=== PATIENT | female | born 1970 | race Caucasian/White ===

== ENCOUNTER 2016-09-30 20:46 | Emergency (ER) | payer BC, OTHER ==
[2016-09-30 21:39] VITALS: BP 122/67; PULSE 87; RESP 18; TEMP 97.4
--- NOTE | 2016-09-30 21:46 | ED ---
Wound/Laceration HPI - General Chief Complaint: Wound/Laceration Stated Complaint: left hand lac Time Seen by Provider: 09/30/16 21:24 Source: patient, RN notes reviewed, old records reviewed Mode of arrival: ambulatory Limitations: no limitations - History of Present Illness Initial Comments: Patient is a 46-year-old female chief complaint laceration left hand between her first and second finger. Patient reports that she was using scissors to cut something and he slipped and cut her hand. Patient states that the laceration is relatively deep. She states she is up-to-date on her tetanus vaccination. She denies any decreased range of motion or hand or wrist. She states the bleeding is well controlled.Patient denies any recent fever, chills, shortness of breath, chest pain, back pain, abdominal pain, nausea vomiting, numbness or tingling, dysuria or hematuria, constipation or diarrhea, headaches or visual changes, or any other current symptoms - Related Data Allergies Allergy/AdvReac Type Severity Reaction Status Date / Time No Known Allergies Allergy Verified 09/30/16 21:36 Review of Systems ROS Statement: Those systems with pertinent positive or pertinent negative responses have been documented in the HPI. ROS Other: All systems not noted in ROS Statement are negative. Past Medical History Past Medical History: No Reported History History of Any Multi-Drug Resistant Organisms: None Reported Past Surgical History: Appendectomy, Cholecystectomy Past Psychological History: No Psychological Hx Reported Smoking Status: Never smoker Past Alcohol Use History: None Reported Past Drug Use History: None Reported General Exam - General Exam Comments Initial Comments: Pleasant 46-year-old female, no distress. Limitations: no limitations General appearance: alert, in no apparent distress Head exam: Present: atraumatic, normocephalic, normal inspection Eye exam: Present: normal appearance, PERRL, EOMI. Absent: scleral icterus, conjunctival injection, periorbital swelling ENT exam: Present: normal exam, mucous membranes moist Neck exam: Present: normal inspection, full ROM. Absent: tenderness, meningismus, lymphadenopathy Respiratory exam: Present: normal lung sounds bilaterally. Absent: respiratory distress, wheezes, rales, rhonchi, stridor Cardiovascular Exam: Present: regular rate, normal rhythm, normal heart sounds. Absent: systolic murmur, diastolic murmur, rubs, gallop, clicks GI/Abdominal exam: Present: soft Extremities exam: Present: normal inspection, full ROM, normal capillary refill. Absent: tenderness, pedal edema, joint swelling, calf tenderness Left Upper Arm exam: Present: normal inspection, full ROM Elbow exam: Present: normal inspection, full ROM Forearm Wrist exam: Present: normal inspection, full ROM Hand Wrist exam: Present: normal inspection, full ROM, laceration, other (1cm laceration between 1st and 2nd finger. ). Absent: tenderness, swelling, abrasion Neuro motor exam: Present: wrist extension intact, thumb opposition intact, thumb IP flexion intact, thumb adduction intact, fingers 2-5 abduction intact Vascular: Present: normal capillary refill Back exam: Present: normal inspection Neurological exam: Present: alert, oriented X3, CN II-XII intact Psychiatric exam: Present: normal affect, normal mood Skin exam: Present: warm, dry, intact, normal color. Absent: rash Course Vital Signs 09/30/16 21:36 Temperature 97.4 F L Pulse Rate 87 Respiratory 18 Rate Blood Pressure 122/67 O2 Sat by Pulse 96 Oximetry Procedures - Laceration Laceration #1 Site: hand Size (cm): 1 Description: linear Depth: simple, single layer Anesthetic Used: benzocaine 0.25% Anesthesia Technique: local infiltration Amount (mls): 1 Pre-repair: wound explored Type of Sutures: nylon Size of Sutures: 6-0 Number of Sutures: 1 Technique: simple, interrupted Patient Tolerated Procedure: well, no complications Medical Decision Making - Medical Decision Making Is a 46-year-old [employer] chief complaint laceration left hand patient was given 1 suture. Wound was well proximal maintenance soaked in water. Patient states her tetanus is up-to-date. Discussed monitor for signs of infection including redness drainage or swelling. Patient states she is have the sutures removed. Patient agrees the treatment plan will comply. Disposition Clinical Impression: Laceration of left hand Disposition: HOME SELF-CARE Condition: Good Instructions: Care For Your Stitches (ED), Laceration (ED) Additional Instructions: Please return to the emergency room in 8-10 days to have sutures removed. Please leave wound covered for the first 24-48 hours and then leave open to air after that time. Please use clean soap and water to clean the suture area to prevent scabbing over the top of your sutures. Please watch for any signs of infection which may include but not limited to increased pain, swelling, redness , fever or chills. Please return to the emergency room if any signs of infection do occur. Please return to the emergency room for any other concerns or complications. Referrals: Johnny Hanson MD [Primary Care Provider] - 1-2 days Time of Disposition: 21:46
== END 2016-09-30 21:55 | disposition home or self-care (01) ==
LOC: EC 20:46
DX: S61.412A Laceration without foreign body of left hand, initial encounter (principal); W27.2XXA Contact with scissors, initial encounter
CPT/HCPCS: 12001; 99283

== ENCOUNTER → 2017-06-25 | Outpatient (CLI) | payer BC, OTHER ==
--- NOTE | 2017-06-25 11:21 | XR ---
EXAMINATION TYPE: XR chest 2V DATE OF EXAM: 06/25/2017 COMPARISON: 05/16/2013 TECHNIQUE: PA and lateral views submitted. HISTORY: Upper respiratory infection FINDINGS: The lungs are clear and there is no pneumothorax, pleural effusion, or focal pneumonia. Hypertrophi c change of the spine. IMPRESSION: 1. No acute process.
== END | disposition home or self-care (01) ==
LOC: RADXRMAIN 11:05
PROVIDERS: ATTEND Family Medicine
DX: J06.9 Acute upper respiratory infection, unspecified (principal)
CPT/HCPCS: 71046

== ENCOUNTER → 2017-08-19 | Outpatient (CLI) | payer BC, OTHER ==
--- NOTE | 2017-08-19 10:58 | US ---
EXAMINATION TYPE: US abdomen complete DATE OF EXAM: 08/19/2017 COMPARISON: CT 2015, US 2013 CLINICAL HISTORY: R00.2 Palpitations, R94.5 Abnormal results of. Elevated liver enzymes, occasional R UQ pain, history of cholecystectomy EXAM MEASUREMENTS: Liver Length: 19.6 cm , normal less than 15.5. Gallbladder Wall: surgically absent CBD: 0.9 cm Spleen: 14.5 cm , normal less than 12.5. Right Kidney: 12.2 x 4.6 x 5.8 cm Left Kidney: 11.6 x 5.1 x 5.0 cm Difficult and limited study due to patient body habitus Pancreas: visualized portions wnl, limited by overlying midline bowel gas Liver: enlarged, heterogeneous, increased attenuation, increased echogenicity Gallbladder: surgically absent Evidence for sonographic Dooley's sign: yes CBD: visualized portions wnl, limited by overlying bowel gas Spleen: enlarged Right Kidney: no hydro or masses seen Left Kidney: no hydro or masses seen Upper IVC: wnl Abd Aorta: visualized portions wnl, limited by overlying midline bowel gas IMPRESSION: 1. Splenomegaly. 2. Hepatomegaly with mild fatty infiltration. 3. No suspicious acute changes
--- NOTE | 2017-08-25 11:00 | HM ---
HOLTER MONITOR REPORT 24 HOUR DCG REPORT: Patient in her diary had episodes when she felt some irregularity in her heart rhythm, some chest discomfort and 1 episode of lightheadedness. Predominant rhythm appears to be sinus with a heart rate ranging from 63 to 117 beats per minute with average heart rate of 83 beats per minute. Rare isolated PVCs were noted. There was no evidence of any significant pauses noted. At that time, patient complained of having some irregularity, she was in a normal sinus rhythm at about 80 beats per minute. There was no evidence of any significant arrhythmia on this Holter recording. There was no correlation of any arrhythmia with patient's perception of irregular heart rhythm. When she complained of some heart pounding, she was in a sinus rhythm at 98 beats per minute. IMPRESSION: Unremarkable 24 hour DCG with predominant sinus rhythm. No evidence of any significant arrhythmia and specifically no correlation of any arrhythmia with the patient's perception of irregular heart rhythm. MMODL / IJN: [id number] /
== END | disposition home or self-care (01) ==
LOC: RADUSWWP 10:03
PROVIDERS: ATTEND Family Medicine
DX: K76.0 Fatty (change of) liver, not elsewhere classified (principal); R16.2 Hepatomegaly with splenomegaly, not elsewhere classified; R00.2 Palpitations
CPT/HCPCS: 76700; 93225; 93226

== ENCOUNTER 2017-08-25 11:54 | Observation (INO) | payer BC ==
[2017-08-25] MEDS ORDERED: ASPIRIN 81 MG PO STA (12:26)
[2017-08-25] MEDS ORDERED: NITROGLYCERIN SL TABS 0.4 MG TAB SUBLINGUAL STA ×3 (12:26)
--- NOTE | 2017-08-25 12:45 | ED ---
General Adult HPI - General Chief complaint: Chest Pain Stated complaint: CHEST PAIN Time Seen by Provider: 08/25/17 12:18 Source: patient, RN notes reviewed Mode of arrival: wheelchair Limitations: no limitations - History of Present Illness Initial comments: Patient is a pleasant 47-year-old female presenting to the emergency Department with chest discomfort. Symptoms have been occurring for several weeks. Symptoms have been daily the last several days. Patient has associated palpitations. Discomfort feels like tightness. Today there was some associated dyspnea and nausea which were both new however also both resolved. No diaphoresis. No history of similar symptoms prior to the past few weeks. Patient has been on a monitor as an outpatient recently. Discomfort at this time is rated 4or5/10. - Related Data Home Medications Medication Instructions Recorded Confirmed Montelukast Sodium [Singulair] 10 mg PO HS 08/25/17 08/25/17 metFORMIN HCL [Glucophage] 500 mg PO BID 08/25/17 08/25/17 Allergies Allergy/AdvReac Type Severity Reaction Status Date / Time No Known Allergies Allergy Verified 08/25/17 12:47 Review of Systems ROS Statement: Those systems with pertinent positive or pertinent negative responses have been documented in the HPI. ROS Other: All systems not noted in ROS Statement are negative. Constitutional: Denies: fever Eyes: Denies: eye pain ENT: Denies: ear pain Respiratory: Denies: cough Cardiovascular: Reports: chest pain, palpitations Endocrine: Denies: fatigue Gastrointestinal: Denies: abdominal pain Genitourinary: Denies: dysuria Skin: Denies: rash Neurological: Denies: weakness Past Medical History Past Medical History: Diabetes Mellitus History of Any Multi-Drug Resistant Organisms: None Reported Past Surgical History: Appendectomy, Cholecystectomy Past Psychological History: No Psychological Hx Reported Smoking Status: Never smoker Past Alcohol Use History: None Reported Past Drug Use History: None Reported General Exam Limitations: no limitations General appearance: alert, in no apparent distress Head exam: Present: atraumatic Eye exam: Present: normal appearance, PERRL ENT exam: Present: normal oropharynx Neck exam: Present: normal inspection Respiratory exam: Present: normal lung sounds bilaterally Cardiovascular Exam: Present: regular rate, normal rhythm Expanded Peripheral pulses: 2+: Radial (R), Radial (L), Posterior Tibialis (R), Posterior Tibialis (L) GI/Abdominal exam: Present: soft. Absent: tenderness Extremities exam: Present: normal inspection. Absent: pedal edema, calf tenderness Neurological exam: Present: alert Psychiatric exam: Present: normal affect, normal mood Skin exam: Present: normal color Course Vital Signs 08/25/17 08/25/17 08/25/17 11:57 12:51 14:06 Temperature 98.0 F Pulse Rate 88 93 87 Respiratory 20 16 18 Rate Blood Pressure 165/74 142/85 128/75 O2 Sat by Pulse 99 97 99 Oximetry EKG Findings - EKG Comments: EKG Findings:: Normal sinus rhythm 88. FL 132. QRS 82. QT 376. QTc 454. Normal axis. Normal QRS. No acute ST change. Medical Decision Making - Medical Decision Making Patient reevaluated and improved with nitroglycerin. Discomfort is currently less than 2/10. Patient updated on results and plan. Case was discussed in detail with Dr. Hanson, who will admit his patient with cardiac evaluation. - Lab Data Result diagrams: 08/25/17 12:44 08/25/17 12:44 Lab Results 08/25/17 08/25/17 08/25/17 Range/Units 12:44 12:44 12:44 WBC 8.6 (3.8-10.6) k/uL RBC 5.40 (3.80-5.40) m/uL Hgb 15.7 (11.4-16.0) gm/dL Hct 46.0 (34.0-46.0) % MCV 85.2 (80.0-100.0) fL MCH 29.1 (25.0-35.0) pg MCHC 34.2 (31.0-37.0) g/dL RDW 14.0 (11.5-15.5) % Plt Count 298 (150-450) k/uL Neutrophils % 65 % Lymphocytes % 26 % Monocytes % 5 % Eosinophils % 2 % Basophils % 1 % Neutrophils # 5.6 (1.3-7.7) k/uL Lymphocytes # 2.2 (1.0-4.8) k/uL Monocytes # 0.4 (0-1.0) k/uL Eosinophils # 0.2 (0-0.7) k/uL Basophils # 0.1 (0-0.2) k/uL PT (9.0-12.0) sec INR (<1.2) APTT (22.0-30.0) sec D-Dimer (<0.60) mg/L FEU Sodium 143 (137-145) mmol/L Potassium 4.5 (3.5-5.1) mmol/L Chloride 104 (98-107) mmol/L Carbon Dioxide 26 (22-30) mmol/L Anion Gap 13 mmol/L BUN 18 H (7-17) mg/dL Creatinine 0.75 (0.52-1.04) mg/dL Est GFR (CKD-EPI)AfAm >90 (>60 ml/min/1.73 sqM) Est GFR (CKD-EPI)NonAf >90 (>60 ml/min/1.73 sqM) Glucose 103 H (74-99) mg/dL Calcium 9.8 (8.4-10.2) mg/dL Magnesium 2.0 (1.6-2.3) mg/dL Total Bilirubin 1.1 (0.2-1.3) mg/dL AST 59 H (14-36) U/L ALT 63 H (9-52) U/L Alkaline Phosphatase 124 (38-126) U/L Total Creatine Kinase 121 (30-135) U/L CK-MB (CK-2) 0.8 (0.0-2.4) ng/mL CK-MB (CK-2) Rel Index 0.7 Troponin I <0.012 (0.000-0.034) ng/mL Total Protein 8.4 H (6.3-8.2) g/dL Albumin 4.6 (3.5-5.0) g/dL 08/25/17 Range/Units 12:44 WBC (3.8-10.6) k/uL RBC (3.80-5.40) m/uL Hgb (11.4-16.0) gm/dL Hct (34.0-46.0) % MCV (80.0-100.0) fL MCH (25.0-35.0) pg MCHC (31.0-37.0) g/dL RDW (11.5-15.5) % Plt Count (150-450) k/uL Neutrophils % % Lymphocytes % % Monocytes % % Eosinophils % % Basophils % % Neutrophils # (1.3-7.7) k/uL Lymphocytes # (1.0-4.8) k/uL Monocytes # (0-1.0) k/uL Eosinophils # (0-0.7) k/uL Basophils # (0-0.2) k/uL PT 10.0 (9.0-12.0) sec INR 1.0 (<1.2) APTT 23.6 (22.0-30.0) sec D-Dimer 0.50 (<0.60) mg/L FEU Sodium (137-145) mmol/L Potassium (3.5-5.1) mmol/L Chloride (98-107) mmol/L Carbon Dioxide (22-30) mmol/L Anion Gap mmol/L BUN (7-17) mg/dL Creatinine (0.52-1.04) mg/dL Est GFR (CKD-EPI)AfAm (>60 ml/min/1.73 sqM) Est GFR (CKD-EPI)NonAf (>60 ml/min/1.73 sqM) Glucose (74-99) mg/dL Calcium (8.4-10.2) mg/dL Magnesium (1.6-2.3) mg/dL Total Bilirubin (0.2-1.3) mg/dL AST (14-36) U/L ALT (9-52) U/L Alkaline Phosphatase (38-126) U/L Total Creatine Kinase (30-135) U/L CK-MB (CK-2) (0.0-2.4) ng/mL CK-MB (CK-2) Rel Index Troponin I (0.000-0.034) ng/mL Total Protein (6.3-8.2) g/dL Albumin (3.5-5.0) g/dL - Radiology Data Radiology results: image reviewed (Chest x-ray shows no acute process) Disposition Clinical Impression: Chest pain Disposition: ADMITTED IP TO THIS HOSP Referrals: Johnny Hanson MD [Primary Care Provider] - 1-2 days Decision Time: 14:51
[2017-08-25 12:57] LABS: Basophils # (A) 0.1 k/uL (0-0.2); Basophils % (A) 1 %; Eosinophils # (A) 0.2 k/uL (0-0.7); Eosinophils % (A) 2 %; HGB 15.7 gm/dL (11.4-16.0); Lymphocytes # (A) 2.2 k/uL (1.0-4.8); Lymphocytes % (A) 26 %; MCH 29.1 pg (25.0-35.0); MCHC 34.2 g/dL (31.0-37.0); MCV 85.2 fL (80.0-100.0); Mean Platelet Volume 7.1; Monocytes # (A) 0.4 k/uL (0-1.0); Monocytes % (A) 5 %; Neutrophils # (A) 5.6 k/uL (1.3-7.7); Neutrophils % (A) 65 %; Platelet Count 298 k/uL (150-450); WBC 8.6 k/uL (3.8-10.6)
[2017-08-25 13:05] LABS: ALT 63 U/L (9-52); AST 59 U/L (14-36); Albumin 4.6 g/dL (3.5-5.0); Alkaline Phosphatase 124 U/L (38-126); Anion Gap 13 mmol/L; Blood Urea Nitrogen 18 mg/dL (7-17); Calcium 9.8 mg/dL (8.4-10.2); Carbon Dioxide 26 mmol/L (22-30); Chloride 104 mmol/L (98-107); Glucose 103 mg/dL (74-99); Potassium 4.5 mmol/L (3.5-5.1); Sodium 143 mmol/L (137-145); Total Bilirubin 1.1 mg/dL (0.2-1.3); Total Protein 8.4 g/dL (6.3-8.2)
[2017-08-25 13:08] LABS: D-Dimer 0.5 mg/L FEU (<0.60)
--- NOTE | 2017-08-25 13:12 | XR ---
EXAMINATION TYPE: XR chest 2V DATE OF EXAM: 08/25/2017 COMPARISON: CXR from 06-25-2017. HISTORY: Chest pain. TECHNIQUE: Frontal and lateral views of the chest are obtained. FINDINGS: There is no focal air space opacity, pleural effusion, or pneumothorax seen. The cardiac silhouette size is within normal limits. The osseous structures are intact. Cholecystectomy clips are seen. IMPRESSION: No acute cardiopulmonary process. No significant change from prior.
[2017-08-25 13:17] LABS: Partial Thromboplastin Time 23.6 sec (22.0-30.0)
[2017-08-25 13:27] LABS: Creatine Kinase 121 U/L (30-135)
[2017-08-25 13:38] LABS: Creatine Kinase MB 0.8 ng/mL (0.0-2.4); Troponin I <0.012 ng/mL (0.000-0.034)
[2017-08-25] MEDS ORDERED: NITROGLYCERIN SL TABS 0.4 MG TAB SUBLINGUAL PRN (14:51)
[2017-08-25 17:28] LABS: Glucose,Whole Blood 97 mg/dL (75-99)
[2017-08-25] MEDS: NITROGLYCERIN OINT 1 INCH/GM PACKET TOPICAL SCH (18:50)
[2017-08-25 19:13] LABS: Creatine Kinase 114 U/L (30-135)
[2017-08-25 19:26] LABS: Creatine Kinase MB 0.5 ng/mL (0.0-2.4); Troponin I <0.012 ng/mL (0.000-0.034)
[2017-08-25 20:23] LABS: Glucose,Whole Blood 131 mg/dL (75-99)
[2017-08-25] MEDS ORDERED: MONTELUKAST 10 MG TAB PO SCH (21:00)
[2017-08-25] MEDS: metFORMIN 500 MG TAB PO SCH (21:18)
[2017-08-26 01:01] LABS: Creatine Kinase 110 U/L (30-135)
[2017-08-26 01:03] LABS: Cholesterol 158 mg/dL (<200); HDL Cholesterol 30 mg/dL (40-60); LDL Cholesterol,Calculated 88 mg/dL (0-99); Triglycerides 200 mg/dL (<150)
[2017-08-26 01:14] LABS: Creatine Kinase MB 0.5 ng/mL (0.0-2.4); Troponin I <0.012 ng/mL (0.000-0.034)
[2017-08-26] MEDS: NITROGLYCERIN OINT 1 INCH/GM PACKET TOPICAL SCH ×2 (05:42→10:25)
[2017-08-26 06:45] LABS: Glucose,Whole Blood 131 mg/dL (75-99)
[2017-08-26 07:57] VITALS: PULSE 86; RESP 16
[2017-08-26] MEDS ORDERED: ASPIRIN 325 MG TAB PO SCH (09:00)
[2017-08-26 09:53] LABS: T4, Free (Free Thyroxine) 1.25 ng/dL (0.78-2.19)
[2017-08-26] MEDS: metFORMIN 500 MG TAB PO SCH (10:27)
--- NOTE | 2017-08-26 10:57 | ECHOF ---
Referral Reason:chest pain MEASUREMENTS -------- HEIGHT: 162.6 cm WEIGHT: 117.9 kg BP: 125/58 RVIDd: 2.6 cm (< 3.3) IVSd: 0.8 cm (0.6 - 1.1) LVIDd: 4.6 cm (3.9 - 5.3) LVPWd: 1.2 cm (0.6 - 1.1) IVSs: 1.4 cm LVIDs: 2.9 cm LVPWs: 1.4 cm LAESV Index (A-L): 11.06 ml/m Ao Diam: 2.5 cm (2.0 - 3.7) AV Cusp: 1.5 cm (1.5 - 2.6) LA Diam: 3.0 cm (2.7 - 3.8) EPSS: 0.5 cm MV E Bernardo: 0.89 m/s MV DecT: 233 ms MV A Bernardo: 0.72 m/s MV E/A Ratio: 1.24 RAP: 5.00 mmHg RVSP: 29.05 mmHg MV EF SLOPE: 124.48 mm/s (70 - 150) MV EXCURSION: 1.19 cm (> 18.000) FINDINGS -------- Sinus rhythm. This was a technically adequate study. The left ventricular size is normal. Left ventricular wall thickness is normal. Overall left vent ricular systolic function is normal with, an EF between 55 - 60 %. The right ventricle is normal in size and function. Normal LA size by volume 22+/-6 ml/m2. The right atrium is normal in size. The aortic valve is trileaflet, and appears structurally normal. No aortic stenosis or regurgitation. The mitral valve is normal. There is trace mitral regurgitation. Trace tricuspid regurgitation present. Right ventricular systolic pressure is normal at < 35 mmHg. There is no evidence of pulmonary hypertension. There is no pulmonic regurgitation present. The aortic root size is normal. Normal inferior vena cava with normal inspiratory collapse consistent with estimated right atrial pre ssure of 5 mmHg. The pericardium is normal. There is no pericardial effusion. CONCLUSIONS -------- 1. Sinus rhythm. 2. This was a technically adequate study. 3. The left ventricular size is normal. 4. Left ventricular wall thickness is normal. 5. Overall left ventricular systolic function is normal with, an EF between 55 - 60 %. 6. Normal LA size by volume 22+/-6 ml/m2. 7. The aortic valve is trileaflet, and appears structurally normal. No aortic stenosis or regurgitati on. 8. There is trace mitral regurgitation. 9. Trace tricuspid regurgitation present. 10. Right ventricular systolic pressure is normal at < 35 mmHg. 11. There is no evidence of pulmonary hypertension. 12. There is no pulmonic regurgitation present. 13. The aortic root size is normal. 14. There is no pericardial effusion. BATTERY CONTAINER TESTER: Fito Bhakta RDCS
--- NOTE | 2017-08-26 11:34 | CONS ---
CONSULTATION This is a 47-year-old, somewhat obese lady with a diagnosis of diabetes that was made recently and started on metformin. She also has underlying bronchial asthma, which has been stable. She has been experiencing episodes of palpitations on and off in a random fashion and had a recent 24 hour DCG performed last week. The Holter revealed that she was predominantly in sinus rhythm with rare isolated ectopy and there was no correlation of any arrhythmia when she felt her heart racing. However, she came in with complaints of discomfort in the chest, sharp in nature, along with some palpitations, some shortness of breath. All these symptoms happened, seemed to occur in a very random fashion. She never has any exertional chest pain. Only when she sits down, she feels some tightness in the chest that lasts a few seconds and then disappears. Quality is very atypical. Her chest tightness seems to be associated with palpitations. She is resting comfortably without symptoms at this time. PAST MEDICAL HISTORY: 1. Recently, she was diagnosed to have type 2 diabetes, started on Glucophage. 2. Bronchial asthma. 3. Obesity. 4. Patient is status post appendectomy, cholecystectomy. MEDICATIONS: Medications include metformin 500 mg b.i.d., Singulair 10 mg daily. ALLERGIES: None. REVIEW OF SYSTEMS: Unremarkable other than above-mentioned facts, specifically she does not have any hematemesis, melena, genitourinary symptoms, fever with chills or cough with expectoration. SOCIAL HISTORY: Patient does not smoke. Does not consume alcohol. PHYSICAL EXAMINATION: On examination, blood pressure is 118/70, pulse rate 70 per minute regular. HEENT: Unremarkable. Fundus was not examined by me. Neck is supple. There is no JVD. I do not hear a carotid bruit. There is no thyromegaly. Heart exam reveals S1, S2 heard normally without a rub, murmur or gallop. Lungs are clear. Abdomen is soft, nontender. Lower extremities reveal normal pulses. No edema. Central nervous system is normal. EKG revealed sinus mechanism without acute changes. LABORATORY DATA: Laboratory data suggests that her troponin levels are normal. Her D-dimer is also within normal limits. IMPRESSION: 1. Palpitations. A 24-hour Holter was unremarkable for any correlation of arrhythmia with her perception of palpitations. During her monitoring here and on the Holter, there was no significant arrhythmia other than isolated PACs and PVCs. 2. Atypical chest pain. 3. Obesity. 4. Recent diagnosis of type 2 diabetes mellitus. RECOMMENDATIONS: In view of her palpitations, I will check her thyroid levels. We will increase activity. We will check her LV function by echo. We will increase activity and if she has no further symptoms, she can be discharged and I will follow up in the office as an outpatient and consider outpatient stress testing. I discussed my thoughts in detail with the patient. Thank you very much for the consult. MMIGNACIOL / IJN: [id number] /
--- NOTE | 2017-08-26 11:46 | P.HPIM ---
History of Present Illness H&P Date: 08/26/17 Chief Complaint: Chest pain 47-year-old who presented to the emergency room with a chief complaint of chest pain. Patient states she has been having chest pain that she describes as tightness for multiple weeks. She states the pain also went into her upper back. Patient has also been experiencing palpitations. Patient states she recently had a Holter monitor and was told it was normal. Reports some dizziness, which has resolved. Denies shortness of breath. Denies nausea or vomiting. The patient has a history of diabetes mellitus and gastroesophageal reflux disease. She is a nonsmoker. Chest x-ray: Unremarkable EKG: Sinus mechanism. Rate 88. No ST elevation. Laboratory data: WBC 8.6. Hemoglobin 15.7. Platelet count 298. Sodium 143. Potassium 4.5. BUN 18. Creatinine 0.75. Glucose 103. Magnesium 2.0. Troponins negative 3. Lipid panel: Triglycerides 200, cholesterol 158, LDL 88, HDL 30 D-dimer: 0.50 The patient was admitted to the hospital under the care of Dr. Hanson to the observation unit. Review of Systems GENERAL: Patient denies fever. Denies chills. Positive for dizziness which has resolved. EYES: Denies blurred vision. Denies vision changes. Denies eye pain. EARS, NOSE, MOUTH, & THROAT: Denies headache. Denies sore throat. Denies ear pain. RESPIRATORY: Denies cough. Denies shortness of breath. Denies sputum production. Denies hemoptysis. CARDIOVASCULAR: Positive for chest pain yesterday. Currently denies chest pain. Positive for palpitations yesterday. Currently denies palpitations. Denies arrhythmias. GASTROINTESTINAL: Denies abdominal pain. Denies diarrhea. Denies constipation. Denies nausea. Denies vomiting. Denies heartburn. Denies blood in the stool. GENITOURINARY: Denies urinary frequency. Denies burning. Denies dysuria. Denies cloudy urine. Denies blood in the urine. MUSCULOSKELETAL: Denies myalgias. Denies joint swelling. Denies decreased range of motion beyond patients baseline. INTEGUMENTARY: Denies pruitis. Denies rash. PSYCHIATRIC: Denies suicidal or homicial ideations. ENDOCRINE: Denies weight change. Denies polydipsia. Denies polyuria. HEMATOLOGIC: Denies bleeding disorders. Past Medical History Past Medical History: Cancer, Diabetes Mellitus, GERD/Reflux, Pneumonia Additional Past Medical History / Comment(s): arthritis, scoliosis,recently dx w /dm-2, murmur,bronchitis. "enlarged liver,elevated liver enz-has u/s of liver no results back yet", basal cell skin ca eye lid History of Any Multi-Drug Resistant Organisms: None Reported Past Surgical History: Ablation, Appendectomy, Cholecystectomy, Tubal Ligation Additional Past Surgical History / Comment(s): basal cell skin ca removed lt eye lid Past Anesthesia/Blood Transfusion Reactions: No Reported Reaction Smoking Status: Never smoker - Past Family History Mother Family Medical History: Cancer Additional Family Medical History / Comment(s): lung cancer - age 47 Father Additional Family Medical History / Comment(s): age 70 from [facility] Medications and Allergies Home Medications Medication Instructions Recorded Confirmed Type Montelukast Sodium [Singulair] 10 mg PO HS 08/25/17 08/25/17 History metFORMIN HCL [Glucophage] 500 mg PO BID 08/25/17 08/25/17 History Allergies Allergy/AdvReac Type Severity Reaction Status Date / Time No Known Allergies Allergy Verified 08/25/17 12:47 Physical Exam Vitals: Vital Signs Temp Pulse Pulse Resp BP BP Pulse Ox 08/26/17 08:00 16 08/26/17 07:54 98.1 F 86 16 125/58 97 08/26/17 04:00 98.2 F 74 18 117/66 97 08/25/17 23:29 98.6 F 85 16 104/55 93 L 08/25/17 20:00 81 16 08/25/17 19:36 98.1 F 81 16 156/87 94 L 08/25/17 16:10 98.9 F 82 16 145/78 96 08/25/17 15:41 98.2 F 79 18 135/69 98 08/25/17 14:06 87 18 128/75 99 08/25/17 12:51 93 16 142/85 97 08/25/17 11:57 98.0 F 88 20 165/74 99 Intake and Output 08/25/17 08/26/17 08/26/17 22:59 06:59 14:59 Intake Total 400 Balance 400 Intake: Oral 400 Other: Voiding Method Toilet Toilet GENERAL: This is a 47-year-old female in no apparent distress at the time of examination. Pleasant and cooperative. HEENT: Head is atraumatic, normocephalic. Pupils are equal, round, and reactive to light. Sclerae anicteric. Conjunctivae are clear. Mucus membranes of the mouth are moist. Neck is supple. RESPIRATORY: Clear to ausculation. No wheezes, rales, or rhonchi. No use of accessory muscles. Patient maintaining oxygen saturation greater than 92%. No chest wall tenderness is noted on palpation or with deep breathing. CARDIOVASCULAR: Regular rate and rhythm. S1 and S2 noted. No systolic or diastolic murmur auscultated. No JVD noted. No S3 or S4 noted. GASTROINTESTINAL: No distention noted. Abdomen soft and round. Normal active bowel sounds auscultated x 4 quadrants. No pain or tenderness noted upon palpation. INTEGUMENTARY: No cyanosis. No jaundice. No rashes noted. No cellulitis noted. EXTREMITIES: 2+ peripheral pulses. No evidence of peripheral edema. No calf tenderness noted. NEUROLOGIC: Cranial nerves II-XII intact. PSYCHIATRIC: Awake, alert, and oriented X 3. Appropriate affect. Intact judgement and insight. Results CBC & Chem 7: 08/25/17 12:44 08/25/17 12:44 Labs: Abnormal Lab Results - Last 24 Hours (Table) 08/25/17 08/25/17 08/26/17 Range/Units 12:44 19:56 00:10 BUN 18 H (7-17) mg/dL Glucose 103 H (74-99) mg/dL POC Glucose (mg/dL) 131 H (75-99) mg/dL AST 59 H (14-36) U/L ALT 63 H (9-52) U/L Total Protein 8.4 H (6.3-8.2) g/dL Triglycerides 200 H (<150) mg/dL HDL Cholesterol 30 L (40-60) mg/dL TSH (0.465-4.680) mIU/L 08/26/17 08/26/17 Range/Units 00:10 06:43 BUN (7-17) mg/dL Glucose (74-99) mg/dL POC Glucose (mg/dL) 131 H (75-99) mg/dL AST (14-36) U/L ALT (9-52) U/L Total Protein (6.3-8.2) g/dL Triglycerides (<150) mg/dL HDL Cholesterol (40-60) mg/dL TSH 4.800 H (0.465-4.680) mIU/L Thrombosis Risk Factor Assmnt - Choose All That Apply Any of the Below Risk Factors Present?: Yes Each Factor Represents 1 point: Age 41-60 years, Obesity (BMI >25) Other Risk Factors: No Each Risk Factor Represents 5 Points: Elective major lower extremity arthoplasty Thrombosis Risk Factor Assessment Total Risk Factor Score: 7 Thrombosis Risk Factor Assessment Level: High Risk Assessment and Plan Plan: ASSESSMENT: Symptoms of chest tightness and palpitations, rule out acute coronary syndrome and/or arrhythmias Diabetes mellitus, type II Morbid obesity: BMI 44.6 PLAN: Cardiology on consult. Await further recommendations and input Home meds as appropriate Monitor labs Monitor vital signs and address as appropriate Discharge planning: Patient to return home when stable Further recommendations pending patient's course Nurse practitioner note has been reviewed by physician. Signing provider agrees with the documented findings, assessment, and plan of care.
[2017-08-26 11:50] VITALS: BP 124/73; TEMP 98.2
--- NOTE | 2017-08-26 11:53 | P.DS ---
Providers Date of admission: 08/25/17 14:51 Expected date of discharge: 08/26/17 Attending physician: Johnny Hanson Consults: 08/25/17 14:51 Consult Physician Urgent Consulting Provider: Vincent Evans Consult Reason/Comments: cp Do you want consulting provider notified?: Yes Primary care physician: Johnny Margie Va Hospital Course: 47-year-old who presented to the emergency room with a chief complaint of chest pain. Patient states she has been having chest pain that she describes as tightness for multiple weeks. She states the pain also went into her upper back. Patient has also been experiencing palpitations. Patient states she recently had a Holter monitor and was told it was normal. Reports some dizziness, which has resolved. Denies shortness of breath. Denies nausea or vomiting. The patient has a history of diabetes mellitus and gastroesophageal reflux disease. She is a nonsmoker. Chest x-ray: Unremarkable EKG: Sinus mechanism. Rate 88. No ST elevation. Laboratory data: WBC 8.6. Hemoglobin 15.7. Platelet count 298. Sodium 143. Potassium 4.5. BUN 18. Creatinine 0.75. Glucose 103. Magnesium 2.0. Troponins negative 3. Lipid panel: Triglycerides 200, cholesterol 158, LDL 88, HDL 30 D-dimer: 0.50 The patient was admitted to the hospital under the care of Dr. Hanson to the observation unit. The patient was evaluated by cardiology. She underwent an echocardiogram revealing ejection fraction between 55% and 60%, trace mitral regurgitation, trace tricuspid regurgitation. The patient was cleared for discharge from a cardiology standpoint and is to follow up in the office next week and may undergo stress test. The patient was deemed stable for discharge per Dr. Hanson. She is to follow up on an outpatient basis. DISCHARGE DIAGNOSIS: Symptoms of chest tightness and palpitations, acute coronary syndrome ruled out , patient with recent holter monitor that was unremarkable and did not show evidence of arrhythmias Diabetes mellitus, type II Morbid obesity: BMI 44.6 Nurse practitioner note has been reviewed by physician. Signing provider agrees with the documented findings, assessment, and plan of care. Plan - Discharge Summary Discharge Rx Participant: No New Discharge Prescriptions: Continue metFORMIN HCL [Glucophage] 500 mg PO BID Montelukast Sodium [Singulair] 10 mg PO HS Discharge Medication List Montelukast Sodium [Singulair] 10 mg PO HS 08/25/17 [History] metFORMIN HCL [Glucophage] 500 mg PO BID 08/25/17 [History] Follow up Appointment(s)/Referral(s): Sheri Doss MD [STAFF PHYSICIAN] - 3 Days Johnny Hanson MD [Primary Care Provider] - 1 Week Patient Instructions/Handouts: Chest Pain (DC) Discharge Disposition: HOME SELF-CARE
[2017-08-26 12:11] LABS: Glucose,Whole Blood 111 mg/dL (75-99)
== END 2017-08-26 11:20 | disposition home or self-care (01) ==
LOC: EC 11:54 → 3OBS 14:51
PROVIDERS: ADMIT Family Medicine; ATTEND Family Medicine
DX: R07.89 Other chest pain (principal); R06.00 Dyspnea, unspecified; R42 Dizziness and giddiness; R11.0 Nausea; J45.909 Unspecified asthma, uncomplicated; E66.01 Morbid (severe) obesity due to excess calories; Z68.41 Body mass index [BMI] 40.0-44.9, adult; K21.9 Gastro-esophageal reflux disease without esophagitis; M19.90 Unspecified osteoarthritis, unspecified site; R94.5 Abnormal results of liver function studies; E11.9 Type 2 diabetes mellitus without complications; Z90.49 Acquired absence of other specified parts of digestive tract; Z79.84 Long term (current) use of oral hypoglycemic drugs; Z79.899 Other long term (current) drug therapy; Z87.01 Personal history of pneumonia (recurrent); Z87.09 Personal history of other diseases of the respiratory system; Z85.828 Personal history of other malignant neoplasm of skin; Z80.1 Family history of malignant neoplasm of trachea, bronchus and lung
CPT/HCPCS: 99285 ×2; 36415; 93005; 93306; 85379; 84439; 80061; 80053; 82550 ×2; 82553 ×2; 83735; 84443; 84484 ×2; 85025; 85610; 85730; 71046; G0378 ×2

== ENCOUNTER → 2018-04-11 | Outpatient (CLI) | payer BC ==
--- NOTE | 2018-04-11 18:16 | XR ---
EXAMINATION TYPE: XR Hip Complete RT DATE OF EXAM: 04/11/2018 COMPARISON: NONE HISTORY: Right hip pain TECHNIQUE: 2 views FINDINGS: Hip joint space is normal. There is some spurring at the greater trochanter. There could be small chip fracture of the spur. There is no dislocation. Sacroiliac joint appears normal. There is no sign of hip dysplasia. IMPRESSION: Possible fracture of the hypertrophic spur on the greater trochanter of the right femur.
== END | disposition home or self-care (01) ==
LOC: RADXRMAIN 16:21
PROVIDERS: ATTEND Nurse Practitioner Women's Health
DX: M25.551 Pain in right hip (principal)
CPT/HCPCS: 73502

== ENCOUNTER 2018-05-23 14:19 | Emergency (ER) | payer BC ==
[2018-05-23] MEDS ORDERED: MECLIZINE 12.5 MG TAB PO STA (14:50)
[2018-05-23] MEDS ORDERED: SODIUM CHLORIDE 0.9% 1,000 ML IV STA (14:50)
--- NOTE | 2018-05-23 15:06 | ED ---
General Adult HPI - General Chief complaint: Dizziness Stated complaint: Vertigo, weakness Time Seen by Provider: 05/23/18 14:35 Source: patient, RN notes reviewed, old records reviewed Mode of arrival: ambulatory Limitations: no limitations - History of Present Illness Initial comments: 47-year-old female presenting with 1 week of vertigo and dizziness. Patient states she had physical therapy for chronic hip pain, denies any therapy session she became dizzy, had several episodes of vomiting. This was one week ago. Since that time she's had ongoing nausea and has felt unsteady on her feet. No significant vomiting. No fever or chills. No chest pain. No headache. She was sent by urgent care for evaluation of vertigo. Denies focal numbness or weakness. - Related Data Home Medications Medication Instructions Recorded Confirmed metFORMIN HCL [Glucophage] 500 mg PO HS 08/25/17 05/23/18 Loratadine [Claritin] 10 mg PO DAILY 05/23/18 05/23/18 Previous Rx's Medication Instructions Recorded Meclizine [Antivert] 25 mg PO TID PRN #21 tab 05/23/18 Allergies Allergy/AdvReac Type Severity Reaction Status Date / Time No Known Allergies Allergy Verified 05/23/18 14:48 Review of Systems ROS Statement: Those systems with pertinent positive or pertinent negative responses have been documented in the HPI. ROS Other: All systems not noted in ROS Statement are negative. Past Medical History Past Medical History: Cancer, Diabetes Mellitus, GERD/Reflux, Pneumonia Additional Past Medical History / Comment(s): arthritis, scoliosis,recently dx w /dm-2, murmur,bronchitis. "enlarged liver,elevated liver enz-has u/s of liver no results back yet", basal cell skin ca eye lid History of Any Multi-Drug Resistant Organisms: None Reported Past Surgical History: Ablation, Appendectomy, Cholecystectomy, Tubal Ligation Additional Past Surgical History / Comment(s): basal cell skin ca removed lt eye lid Past Anesthesia/Blood Transfusion Reactions: No Reported Reaction Past Psychological History: No Psychological Hx Reported Smoking Status: Never smoker - Past Family History Mother Family Medical History: Cancer Additional Family Medical History / Comment(s): lung cancer - age 47 Father Additional Family Medical History / Comment(s): age 70 from [facility] General Exam Limitations: no limitations General appearance: alert, in no apparent distress Head exam: Present: atraumatic, normocephalic Eye exam: Present: normal appearance, PERRL, EOMI. Absent: nystagmus ENT exam: Present: mucous membranes dry Neck exam: Present: normal inspection. Absent: tenderness, meningismus Respiratory exam: Present: normal lung sounds bilaterally. Absent: respiratory distress, wheezes Cardiovascular Exam: Present: regular rate, normal rhythm GI/Abdominal exam: Present: soft. Absent: distended, tenderness, guarding Extremities exam: Present: normal inspection, normal capillary refill. Absent: pedal edema Neurological exam: Present: alert, oriented X3, CN II-XII intact, other (No ataxia, finger-nose within normal limits). Absent: motor sensory deficit Psychiatric exam: Present: normal affect, normal mood Skin exam: Present: warm, dry, intact. Absent: cyanosis, diaphoretic Course Vital Signs 05/23/18 05/23/18 05/23/18 14:25 15:30 16:00 Temperature 97.4 F L Pulse Rate 82 85 82 Respiratory 16 19 18 Rate Blood Pressure 159/96 146/95 154/97 O2 Sat by Pulse 97 97 Oximetry 05/23/18 16:30 Temperature Pulse Rate 84 Respiratory 16 Rate Blood Pressure 150/91 O2 Sat by Pulse 98 Oximetry EKG Findings - EKG Comments: EKG Findings:: EKG: Sinus rhythm with PACs and LVH may be normal variant, ventricular rate of 83, WV interval 132, QRS duration 84, QTC 453 Medical Decision Making - Medical Decision Making 47-year-old female presenting with 1 week of vertigo. Patient's is overall well -appearing, no ataxia, nonfocal neurologic exam. Patient has normal CBC, normal CMP, urinalysis is contaminated. EKG sinus rhythm, chest x-ray negative for focal findings, head CT is within normal limits, no acute ischemia or hemorrhage. Patient given meclizine and IV fluids, reevaluation she is feeling better, she does still have some residual dizziness. She is offered observation for continue symptomatic treatment, she declined she prefers to be discharged. She will have close follow-up with her primary care physician. She will return with any worsening or changing symptoms, including headache, focal numbness or weakness, changes in her vision or speech. - Lab Data Result diagrams: 05/23/18 15:03 05/23/18 15:03 Lab Results 05/23/18 05/23/18 05/23/18 Range/Units 15:03 15:03 15:03 WBC 9.4 (3.8-10.6) k/uL RBC 5.29 (3.80-5.40) m/uL Hgb 15.3 (11.4-16.0) gm/dL Hct 45.7 (34.0-46.0) % MCV 86.4 (80.0-100.0) fL MCH 28.9 (25.0-35.0) pg MCHC 33.4 (31.0-37.0) g/dL RDW 13.6 (11.5-15.5) % Plt Count 267 (150-450) k/uL Neutrophils % 66 % Lymphocytes % 26 % Monocytes % 4 % Eosinophils % 2 % Basophils % 1 % Neutrophils # 6.2 (1.3-7.7) k/uL Lymphocytes # 2.4 (1.0-4.8) k/uL Monocytes # 0.4 (0-1.0) k/uL Eosinophils # 0.2 (0-0.7) k/uL Basophils # 0.1 (0-0.2) k/uL PT 10.7 (9.0-12.0) sec INR 1.0 (<1.2) Sodium 139 (137-145) mmol/L Potassium 4.1 (3.5-5.1) mmol/L Chloride 103 (98-107) mmol/L Carbon Dioxide 26 (22-30) mmol/L Anion Gap 10 mmol/L BUN 15 (7-17) mg/dL Creatinine 0.77 (0.52-1.04) mg/dL Est GFR (CKD-EPI)AfAm >90 (>60 ml/min/1.73 sqM) Est GFR (CKD-EPI)NonAf >90 (>60 ml/min/1.73 sqM) Glucose 103 H (74-99) mg/dL Calcium 9.6 (8.4-10.2) mg/dL Total Bilirubin 1.1 (0.2-1.3) mg/dL AST 59 H (14-36) U/L ALT 51 (9-52) U/L Alkaline Phosphatase 95 (38-126) U/L Troponin I (0.000-0.034) ng/mL Total Protein 8.2 (6.3-8.2) g/dL Albumin 4.4 (3.5-5.0) g/dL Urine Color Urine Appearance (Clear) Urine pH (5.0-8.0) Ur Specific Patt[place] (1.001-1.035) Urine Protein (Negative) Urine Glucose (UA) (Negative) Urine Ketones (Negative) Urine Blood (Negative) Urine Nitrite (Negative) Urine Bilirubin (Negative) Urine Urobilinogen (<2.0) mg/dL Ur Leukocyte Esterase (Negative) Urine RBC (0-5) /hpf Urine WBC (0-5) /hpf Ur Squamous Epith Cells (0-4) /hpf Urine Bacteria (None) /hpf Urine Mucus (None) /hpf 05/23/18 05/23/18 Range/Units 15:03 15:03 WBC (3.8-10.6) k/uL RBC (3.80-5.40) m/uL Hgb (11.4-16.0) gm/dL Hct (34.0-46.0) % MCV (80.0-100.0) fL MCH (25.0-35.0) pg MCHC (31.0-37.0) g/dL RDW (11.5-15.5) % Plt Count (150-450) k/uL Neutrophils % % Lymphocytes % % Monocytes % % Eosinophils % % Basophils % % Neutrophils # (1.3-7.7) k/uL Lymphocytes # (1.0-4.8) k/uL Monocytes # (0-1.0) k/uL Eosinophils # (0-0.7) k/uL Basophils # (0-0.2) k/uL PT (9.0-12.0) sec INR (<1.2) Sodium (137-145) mmol/L Potassium (3.5-5.1) mmol/L Chloride (98-107) mmol/L Carbon Dioxide (22-30) mmol/L Anion Gap mmol/L BUN (7-17) mg/dL Creatinine (0.52-1.04) mg/dL Est GFR (CKD-EPI)AfAm (>60 ml/min/1.73 sqM) Est GFR (CKD-EPI)NonAf (>60 ml/min/1.73 sqM) Glucose (74-99) mg/dL Calcium (8.4-10.2) mg/dL Total Bilirubin (0.2-1.3) mg/dL AST (14-36) U/L ALT (9-52) U/L Alkaline Phosphatase (38-126) U/L Troponin I <0.012 (0.000-0.034) ng/mL Total Protein (6.3-8.2) g/dL Albumin (3.5-5.0) g/dL Urine Color Yellow Urine Appearance Cloudy H (Clear) Urine pH 5.0 (5.0-8.0) Ur Specific [place] 1.024 (1.001-1.035) Urine Protein Trace H (Negative) Urine Glucose (UA) Negative (Negative) Urine Ketones Negative (Negative) Urine Blood Negative (Negative) Urine Nitrite Negative (Negative) Urine Bilirubin Negative (Negative) Urine Urobilinogen <2.0 (<2.0) mg/dL Ur Leukocyte Esterase Moderate H (Negative) Urine RBC 2 (0-5) /hpf Urine WBC 9 H (0-5) /hpf Ur Squamous Epith Cells 15 H (0-4) /hpf Urine Bacteria Many H (None) /hpf Urine Mucus Moderate H (None) /hpf Disposition Clinical Impression: Vertigo Disposition: HOME SELF-CARE Condition: Good Instructions: Dizziness (ED) Prescriptions: Meclizine [Antivert] 25 mg PO TID PRN #21 tab PRN Reason: Vertigo Is patient prescribed a controlled substance at d/c from ED?: No Referrals: Johnny Hanson MD [Primary Care Provider] - 1-2 days Time of Disposition: 16:53
[2018-05-23 15:16] LABS: Basophils # (A) 0.1 k/uL (0-0.2); Basophils % (A) 1 %; Eosinophils # (A) 0.2 k/uL (0-0.7); Eosinophils % (A) 2 %; HCT 45.7 % (34.0-46.0); HGB 15.3 gm/dL (11.4-16.0); Lymphocytes # (A) 2.4 k/uL (1.0-4.8); Lymphocytes % (A) 26 %; MCH 28.9 pg (25.0-35.0); MCHC 33.4 g/dL (31.0-37.0); MCV 86.4 fL (80.0-100.0); Mean Platelet Volume 6.7; Monocytes # (A) 0.4 k/uL (0-1.0); Monocytes % (A) 4 %; Neutrophils # (A) 6.2 k/uL (1.3-7.7); Neutrophils % (A) 66 %; Platelet Count 267 k/uL (150-450); RBC 5.29 m/uL (3.80-5.40); RDW 13.6 % (11.5-15.5); WBC 9.4 k/uL (3.8-10.6)
[2018-05-23 15:21] LABS: Prothrombin Time 10.7 sec (9.0-12.0)
[2018-05-23 15:27] LABS: ALT 51 U/L (9-52); AST 59 U/L (14-36); Albumin 4.4 g/dL (3.5-5.0); Alkaline Phosphatase 95 U/L (38-126); Anion Gap 10 mmol/L; Blood Urea Nitrogen 15 mg/dL (7-17); Calcium 9.6 mg/dL (8.4-10.2); Carbon Dioxide 26 mmol/L (22-30); Chloride 103 mmol/L (98-107); Glucose 103 mg/dL (74-99); Potassium 4.1 mmol/L (3.5-5.1); Sodium 139 mmol/L (137-145); Total Bilirubin 1.1 mg/dL (0.2-1.3); Total Protein 8.2 g/dL (6.3-8.2)
--- NOTE | 2018-05-23 15:31 | CT ---
EXAMINATION TYPE: CT brain wo con DATE OF EXAM: 05/23/2018 COMPARISON: None HISTORY: Dizziness x [address] DLP: 1109.4 mGycm. Automated Exposure Control for Dose Reduction was Utilized. TECHNIQUE: CT scan of the head is performed without contrast. FINDINGS: There is no acute intracranial hemorrhage, mass effect, or midline shift identified. The ventricles and sulci are within normal limits in size. The globes are intact and the visualized sin uses are clear. No suspicious opacification mastoid air cells is present bilaterally. IMPRESSION: No acute intracranial hemorrhage or midline shift is seen.
--- NOTE | 2018-05-23 15:34 | XR ---
EXAMINATION TYPE: XR chest 2V DATE OF EXAM: 05/23/2018 COMPARISON: Prior chest x-ray August 25, 2017 HISTORY: Syncope and weakness. TECHNIQUE: Frontal and lateral views of the chest are obtained. FINDINGS: There is no focal air space opacity, pleural effusion, or pneumothorax seen. The cardiac silhouette size is upper limits of normal. The osseous structures are intact. Cholecystectomy clips are redemonstrated. IMPRESSION: No acute cardiopulmonary process. No significant change from prior.
[2018-05-23 15:41] LABS: Appearance,Urine Cloudy (Clear); Bacteria,Urine Many /hpf; Bilirubin,Urine Negative (Negative); Blood,Urine Negative (Negative); Color,Urine Yellow; Glucose,Urine (UA) Negative (Negative); Ketones,Urine Negative (Negative); Leukocyte Esterase,Urine Moderate (Negative); Mucus,Urine Moderate /hpf; Nitrite,Urine Negative (Negative); Protein,Urine Trace (Negative); RBC,Urine 2 /hpf (0-5); Specific Gravity,Urine 1.024 (1.001-1.035); Squamous Epithelial Cell,Urine 15 /hpf (0-4); Urobilinogen,Urine <2.0 mg/dL (<2.0); WBC,Urine 9 /hpf (0-5)
[2018-05-23 17:05] VITALS: BP 142/92; PULSE 62; RESP 18; TEMP 98
== END 2018-05-23 17:04 | disposition home or self-care (01) ==
LOC: EC 14:19
DX: R42 Dizziness and giddiness (principal); R11.2 Nausea with vomiting, unspecified; E11.9 Type 2 diabetes mellitus without complications; Z79.84 Long term (current) use of oral hypoglycemic drugs; Z79.899 Other long term (current) drug therapy; Z85.828 Personal history of other malignant neoplasm of skin; Z98.890 Other specified postprocedural states; Z87.39 Personal history of other diseases of the musculoskeletal system and connective tissue
CPT/HCPCS: 36415; 70450; 71046; 80053; 81001; 84484; 85025; 85610; 93005; 96360; 99285

== ENCOUNTER → 2019-01-16 | Outpatient (CLI) | payer BC ==
--- NOTE | 2019-01-17 10:03 | MM ---
Reason for exam: screening (asymptomatic). Last mammogram was performed 3 years and 6 months ago. History: Patient is postmenopausal and has history of other cancer at age 43. Benign US breast aspiration single LT of the left breast, June 27, 2014. Benign US biopsy breast VAD RT of the right breast, June 27, 2014. Physical Findings: A clinical breast exam by your physician is recommended on an annual basis and results should be correlated with mammographic findings. MG Screening Mammo w CAD Bilateral CC and MLO view(s) were taken. Prior study comparison: July 31, 2015, bilateral MG screening mammo w CAD. December 27, 2014, bilateral MG diagnostic mammo w CAD NATALI. June 27, 2014, bilateral MG diagnostic mammo w CAD NATALI. May 28, 2014, bilateral MG diagnostic mammo w CAD NATALI. The breast tissue is heterogeneously dense. This may lower the sensitivity of mammography. There are multiple benign appearing round oval circumscribed masses waxing and waning over multiple priors most mammographically compatible with cysts. Benign appearing bilateral calcifications. No suspicious abnormality. Bilateral biopsy markers noted. No significant changes when compared with prior studies. ASSESSMENT: Benign, BI-RAD 2 RECOMMENDATION: Routine screening mammogram of both breasts in 1 year. (3D recommended on subsequent exams for this patient).
== END | disposition home or self-care (01) ==
LOC: RADMAMWWP 15:48
PROVIDERS: ATTEND Family Medicine
DX: Z12.31 Encounter for screening mammogram for malignant neoplasm of breast (principal)
CPT/HCPCS: 77067

== ENCOUNTER 2019-02-07 07:43 | Emergency (ER) | payer BC ==
[2019-02-07 07:47] VITALS: RESP 18
[2019-02-07] MEDS ORDERED: PANTOPRAZOLE 40 MG/10 ML VIAL IVP STA (07:55)
[2019-02-07] MEDS ORDERED: ONDANSETRON 4 MG/2 ML VIAL IVP STA (07:55)
[2019-02-07] MEDS ORDERED: DICYCLOMINE 10 MG/ML 2 ML AMP IM STA (07:55)
[2019-02-07] MEDS ORDERED: SODIUM CHLORIDE 0.9% 1,000 ML IV STA (07:55)
[2019-02-07] MEDS ORDERED: SODIUM CHLORIDE 0.9% 500 ML 500 ML IV STA (07:55)
--- NOTE | 2019-02-07 07:59 | ED ---
General Adult HPI - General Chief complaint: Nausea/Vomiting/Diarrhea Stated complaint: diarrhea, dehydration Time Seen by Provider: 02/07/19 07:49 Source: patient, RN notes reviewed Mode of arrival: ambulatory Limitations: no limitations - History of Present Illness Initial comments: Patient is a pleasant 48-year-old female presenting to the emergency Department with diarrhea. Onset of symptoms was 5 days ago. Patient did have fevers for a couple of days however not yesterday or today. Patient has nausea without vomiting. Patient is having multiple episodes of diarrhea daily. Patient does have associated cramping. Patient has some upper abdominal discomfort. This is not a chronic problem. - Related Data Home Medications Medication Instructions Recorded Confirmed metFORMIN HCL [Glucophage] 500 mg PO HS 08/25/17 02/07/19 Loratadine [Claritin] 10 mg PO DAILY 05/23/18 02/07/19 Sertraline [Zoloft] 25 mg PO DAILY 02/07/19 02/07/19 Previous Rx's Medication Instructions Recorded Meclizine [Antivert] 25 mg PO TID PRN #21 tab 05/23/18 Dicyclomine [Bentyl] 20 mg PO QID PRN #20 tablet 02/07/19 Allergies Allergy/AdvReac Type Severity Reaction Status Date / Time No Known Allergies Allergy Verified 02/07/19 07:47 Review of Systems ROS Statement: Those systems with pertinent positive or pertinent negative responses have been documented in the HPI. ROS Other: All systems not noted in ROS Statement are negative. Constitutional: Denies: fever Eyes: Denies: eye pain ENT: Denies: ear pain Respiratory: Denies: cough Cardiovascular: Denies: chest pain Endocrine: Denies: fatigue Gastrointestinal: Reports: abdominal pain, nausea, diarrhea. Denies: vomiting, constipation Genitourinary: Denies: dysuria Musculoskeletal: Denies: back pain Skin: Denies: rash Past Medical History Past Medical History: Cancer, Diabetes Mellitus, GERD/Reflux, Pneumonia Additional Past Medical History / Comment(s): arthritis, scoliosis,recently dx w/dm-2, murmur,bronchitis. "enlarged liver,elevated liver enz-has u/s of liver no results back yet", basal cell skin ca eye lid History of Any Multi-Drug Resistant Organisms: None Reported Past Surgical History: Ablation, Appendectomy, Cholecystectomy, Tubal Ligation Additional Past Surgical History / Comment(s): basal cell skin ca removed lt eye lid Past Anesthesia/Blood Transfusion Reactions: No Reported Reaction Past Psychological History: No Psychological Hx Reported Smoking Status: Never smoker Past Alcohol Use History: None Reported Past Drug Use History: None Reported - Past Family History Mother Family Medical History: Cancer Additional Family Medical History / Comment(s): lung cancer - age 47 Father Additional Family Medical History / Comment(s): age 70 from [facility] General Exam Limitations: no limitations General appearance: alert, in no apparent distress Head exam: Present: atraumatic Eye exam: Present: normal appearance, PERRL ENT exam: Present: normal oropharynx Neck exam: Present: normal inspection Respiratory exam: Present: normal lung sounds bilaterally Cardiovascular Exam: Present: regular rate, normal rhythm Expanded Peripheral pulses: 2+: Posterior Tibialis (R), Posterior Tibialis (L) GI/Abdominal exam: Present: soft, normal bowel sounds. Absent: distended, tenderness, guarding, rebound, rigid, pulsatile mass Extremities exam: Present: normal inspection Neurological exam: Present: alert Psychiatric exam: Present: normal affect, normal mood Skin exam: Present: normal color Course Vital Signs 02/07/19 02/07/19 02/07/19 07:45 08:00 08:20 Temperature 98.3 F Pulse Rate 85 78 Respiratory 18 18 Rate Blood Pressure 144/83 145/83 130/80 O2 Sat by Pulse 99 94 L Oximetry 02/07/19 02/07/19 02/07/19 08:30 08:40 08:50 Temperature Pulse Rate Respiratory Rate Blood Pressure 130/80 130/80 110/68 O2 Sat by Pulse 95 94 L Oximetry 02/07/19 02/07/19 09:00 09:10 Temperature Pulse Rate Respiratory Rate Blood Pressure 110/68 106/64 O2 Sat by Pulse 94 L 94 L Oximetry Medical Decision Making - Medical Decision Making Patient reevaluated and resting comfortably in bed. Patient feels much better following medications. Abdomen soft and nontender. Patient states she does have a history of splenomegaly. Patient is updated on results and need for follow-up. - Lab Data Result diagrams: 02/07/19 08:07 02/07/19 08:07 Lab Results 02/07/19 02/07/19 Range/Units 08:07 08:07 WBC 7.5 (3.8-10.6) k/uL RBC 5.06 (3.80-5.40) m/uL Hgb 14.6 (11.4-16.0) gm/dL Hct 43.2 (34.0-46.0) % MCV 85.5 (80.0-100.0) fL MCH 28.8 (25.0-35.0) pg MCHC 33.7 (31.0-37.0) g/dL RDW 15.1 (11.5-15.5) % Plt Count 248 (150-450) k/uL Neutrophils % 66 % Lymphocytes % 24 % Monocytes % 6 % Eosinophils % 2 % Basophils % 1 % Neutrophils # 5.0 (1.3-7.7) k/uL Lymphocytes # 1.8 (1.0-4.8) k/uL Monocytes # 0.4 (0-1.0) k/uL Eosinophils # 0.1 (0-0.7) k/uL Basophils # 0.1 (0-0.2) k/uL Sodium 141 (137-145) mmol/L Potassium 3.7 (3.5-5.1) mmol/L Chloride 103 (98-107) mmol/L Carbon Dioxide 26 (22-30) mmol/L Anion Gap 12 mmol/L BUN 11 (7-17) mg/dL Creatinine 0.73 (0.52-1.04) mg/dL Est GFR (CKD-EPI)AfAm >90 (>60 ml/min/1.73 sqM) Est GFR (CKD-EPI)NonAf >90 (>60 ml/min/1.73 sqM) Glucose 151 H (74-99) mg/dL Calcium 9.2 (8.4-10.2) mg/dL Total Bilirubin 1.0 (0.2-1.3) mg/dL AST 56 H (14-36) U/L ALT 54 H (9-52) U/L Alkaline Phosphatase 107 (38-126) U/L Total Protein 8.0 (6.3-8.2) g/dL Albumin 4.0 (3.5-5.0) g/dL Amylase 52 (30-110) U/L Lipase 76 (23-300) U/L - Radiology Data Radiology results: image reviewed (KUB shows some concern for splenomegaly) Disposition Clinical Impression: Diarrhea Disposition: HOME SELF-CARE Condition: Stable Instructions (If sedation given, give patient instructions): Acute Diarrhea (ED) Additional Instructions: Please follow-up with primary care physician in the next couple days for recheck. Return for increased pain, fevers, uncontrolled diarrhea, vomiting, worsening symptoms or other concerns. Prescription has been sent to [facility] pharmacy on . Prescriptions: Dicyclomine [Bentyl] 20 mg PO QID PRN #20 tablet PRN Reason: Pain Is patient prescribed a controlled substance at d/c from ED?: No Referrals: Johnny Hanson MD [Primary Care Provider] - 1-2 days Time of Disposition: 09:17
[2019-02-07 08:21] VITALS: PULSE 78
[2019-02-07 08:30] LABS: Basophils # (A) 0.1 k/uL (0-0.2); Basophils % (A) 1 %; Eosinophils # (A) 0.1 k/uL (0-0.7); Eosinophils % (A) 2 %; HCT 43.2 % (34.0-46.0); HGB 14.6 gm/dL (11.4-16.0); Lymphocytes # (A) 1.8 k/uL (1.0-4.8); Lymphocytes % (A) 24 %; MCH 28.8 pg (25.0-35.0); MCHC 33.7 g/dL (31.0-37.0); MCV 85.5 fL (80.0-100.0); Mean Platelet Volume 7.3; Monocytes # (A) 0.4 k/uL (0-1.0); Monocytes % (A) 6 %; Neutrophils % (A) 66 %; Platelet Count 248 k/uL (150-450); RBC 5.06 m/uL (3.80-5.40); RDW 15.1 % (11.5-15.5); WBC 7.5 k/uL (3.8-10.6)
[2019-02-07 08:34] LABS: ALT 54 U/L (9-52); AST 56 U/L (14-36); African American GFR (CKD) >90 (>60 ml/min/1.73 sqM); Alkaline Phosphatase 107 U/L (38-126); Amylase 52 U/L (30-110); Anion Gap 12 mmol/L; Blood Urea Nitrogen 11 mg/dL (7-17); Calcium 9.2 mg/dL (8.4-10.2); Carbon Dioxide 26 mmol/L (22-30); Chloride 103 mmol/L (98-107); Glucose 151 mg/dL (74-99); Potassium 3.7 mmol/L (3.5-5.1); Sodium 141 mmol/L (137-145)
--- NOTE | 2019-02-07 08:56 | XR ---
EXAMINATION TYPE: XR KUB DATE OF EXAM: 02/07/2019 CLINICAL DATA: 48-year-old female with abdominal pain, [facility] COMPARISON: None FINDINGS: Levoconvex curvature lumbar spine. Cholecystectomy clips. Some additional surgical clips projecting o link the right iliac wing. The splenic shadow appears large measuring up proximally 19.4 cm. Lung bases are clear. No evidence for free intraperitoneal air. No dilated small bowel or air-fluid levels. Scattered air and stool seen throughout the colon extendi ng distally into the rectum. Mild overall stool burden. No suspicious calcifications identified. IMPRESSION: 1. No evidence of bowel obstruction or free intraperitoneal air. 2. Possible underlying splenomegaly. Correlate with physical exam findings.
[2019-02-07 09:43] VITALS: BP 107/63; TEMP 98.4
== END 2019-02-07 09:26 | disposition home or self-care (01) ==
LOC: EC 07:43
DX: R19.7 Diarrhea, unspecified (principal); R11.0 Nausea; R25.2 Cramp and spasm; E11.9 Type 2 diabetes mellitus without complications; Z79.84 Long term (current) use of oral hypoglycemic drugs; Z79.899 Other long term (current) drug therapy; Z85.828 Personal history of other malignant neoplasm of skin; Z87.19 Personal history of other diseases of the digestive system; Z90.49 Acquired absence of other specified parts of digestive tract; Z98.890 Other specified postprocedural states
CPT/HCPCS: 36415; 80053; 82150; 83690; 85025; 74018; 99284; 96374; 96375; 96361; 96372; J0500; J2405; C9113

== ENCOUNTER → 2019-02-13 | Outpatient (CLI) | payer BC ==
--- NOTE | 2019-02-14 10:40 | XR ---
2 view abdomen HISTORY: Abdomen pain and diarrhea 2 views of the abdomen on 4 images Surgical clips are present in the right upper quadrant, right lower quadrant. Lung bases are clear. H eart size may be accentuated by technique. No evident bowel obstruction or pneumoperitoneum. There is a spinal curvature. Suspect some underlying facet arthropathy, degenerative disc changes in the visu alized lumbar spine. IMPRESSION: Nonobstructive bowel gas pattern. Additional findings above.
== END | disposition home or self-care (01) ==
LOC: LABWHC1 12:32
PROVIDERS: ATTEND Family Medicine
DX: R10.9 Unspecified abdominal pain (principal); R19.7 Diarrhea, unspecified
CPT/HCPCS: 74019; 87045; 87046; 87324; 87328; 87329

== ENCOUNTER → 2020-03-07 | Outpatient (CLI) | payer BC ==
--- NOTE | 2020-03-08 11:06 | MM ---
Reason for exam: screening (asymptomatic). Last mammogram was performed 1 year and 2 months ago. History: Patient is postmenopausal and has history of other cancer at age 43. Benign US breast aspiration single LT of the left breast, June 27, 2014. Benign US biopsy breast VAD RT of the right breast, June 27, 2014. Physical Findings: A clinical breast exam by your physician is recommended on an annual basis and results should be correlated with mammographic findings. MG 3D Screening Mammo W/Cad Bilateral CC and MLO view(s) were taken. Prior study comparison: January 16, 2019, bilateral MG screening mammo w CAD. July 31, 2015, bilateral MG screening mammo w CAD. The breast tissue is heterogeneously dense. This may lower the sensitivity of mammography. There is chronic nodularity bilaterally. No significant changes when compared with prior studies. ASSESSMENT: Benign, BI-RAD 2 RECOMMENDATION: Routine screening mammogram of both breasts in 1 year.
== END | disposition home or self-care (01) ==
LOC: RADMAMWWP 11:22
PROVIDERS: ATTEND Family Medicine
DX: Z12.31 Encounter for screening mammogram for malignant neoplasm of breast (principal)
CPT/HCPCS: 77063; 77067

== ENCOUNTER → 2021-07-25 | Outpatient (CLI) | payer BC ==
--- NOTE | 2021-07-28 14:23 | MM ---
Reason for exam: screening (asymptomatic). Last mammogram was performed 1 year and 5 months ago. History: Patient is postmenopausal and has history of other cancer at age 43. Benign US breast aspiration single LT of the left breast, June 27, 2014. Benign US biopsy breast VAD RT of the right breast, June 27, 2014. Physical Findings: A clinical breast exam by your physician is recommended on an annual basis and results should be correlated with mammographic findings. MG 3D Screening Mammo W/Cad Bilateral CC and MLO view(s) were taken. Prior study comparison: March 07, 2020, bilateral MG 3d screening mammo w/cad. January 16, 2019, bilateral MG screening mammo w CAD. The breast tissue is heterogeneously dense. This may lower the sensitivity of mammography. No significant changes when compared with prior studies. ASSESSMENT: Benign, BI-RAD 2 RECOMMENDATION: Routine screening mammogram of both breasts in 1 year.
== END | disposition home or self-care (01) ==
LOC: RADMAMWWP 13:17
PROVIDERS: ATTEND Family Medicine
DX: Z12.31 Encounter for screening mammogram for malignant neoplasm of breast (principal)
CPT/HCPCS: 77063; 77067

== ENCOUNTER → 2022-08-31 | Outpatient (CLI) | payer BC ==
[2022-08-31 14:37] LABS: African American GFR (CKD) 97.6 (60.0-200.0); Anion Gap 11.7 mmol/L (10.00-18.00); Carbon Dioxide 24.3 mmol/L (20.0-27.5); Non-African American GFR(CKD) 84.2 (60.0-200.0); Potassium 4.6 mmol/L (3.5-5.5)
[2022-08-31 14:58] LABS: Basophils # (A) 0.08 X 10*3/uL (0.00-0.10); Eosinophils # (A) 0.17 X 10*3/uL (0.04-0.35); Eosinophils % (A) 2.2 %; HCT 44.4 % (37.2-46.3); HGB 14.6 g/dL (12.0-15.0); Immature Grans, Automated 0.4 %; Lymphocytes # (A) 2.29 X 10*3/uL (0.90-5.00); Lymphocytes % (A) 29.1 %; MCH 28.4 pg (27.0-32.0); MCHC 32.9 g/dL (32.0-37.0); MCV 86.4 fL (80.0-97.0); Mean Platelet Volume 10.7 fL (9.5-12.2); Monocytes # (A) 0.56 X 10*3/uL (0.20-1.00); Monocytes % (A) 7.1 %; NRBC Per 100 WBC 0 /100 WBCS (0.0-0.0); Neutrophils # (A) 4.75 X 10*3/uL (1.80-7.70); Neutrophils % (A) 60.2 %; Platelet Count 241 X 10*3/uL (140-440); RBC 5.14 X 10*6/uL (4.10-5.20); WBC 7.88 X 10*3/uL (4.50-10.00)
== END | disposition home or self-care (01) ==
LOC: LABPAT 08:17
PROVIDERS: ATTEND Internal Medicine
DX: Z01.812 Encounter for preprocedural laboratory examination (principal); R07.9 Chest pain, unspecified
CPT/HCPCS: 36415; 80051; 82565; 85025

== ENCOUNTER 2022-09-04 10:28 | Day surgery (SDC) | payer BC ==
[~2022-09-04 10:28] MED LIST: ALPRAZolam 0.25 MG TAB PO PRN; ALPRAZolam 0.5 MG TAB PO PRN; ASPIRIN 325 MG TAB PO ONE; ATORVASTATIN 80 MG TAB PO ONE; HEPARIN SODIUM,PORCINE 10,000 UNIT in SODIUM CHLORIDE 0.9% 1,000 ML IRRIGATION PRN; HEPARIN SODIUM,PORCINE 2,500 UNIT in SODIUM CHLORIDE 0.9% 250 ML IRRIGATION PRN; NITROGLYCERIN SL TABS 0.4 MG TAB SUBLINGUAL PRN; SODIUM CHLORIDE 0.9% 1,000 ML in EMPTY BAG 1 BAG IV SCH
[2022-09-04 11:18] LABS: Glucose,Whole Blood 215 mg/dL (70-110)
[2022-09-04] MEDS ORDERED: HEPARIN SODIUM 1,000 UN/ML (10ML VL) ONE (11:29)
[2022-09-04] MEDS ORDERED: VERAPAMIL 2.5 MG/ML 2 ML AMP ONE (11:29)
[2022-09-04] MEDS ORDERED: fentaNYL (PF) 50 MCG/ML 2 ML AMP ONE (11:29)
[2022-09-04] MEDS ORDERED: INSULIN ASPART (NovoLOG) 100 UNIT/ML VIAL SQ ONE (11:39)
[2022-09-04 11:43] VITALS: RESP 16; TEMP 97.5
[2022-09-04] MEDS ORDERED: MIDAZOLAM 2 MG/2 ML VIAL IVP ONE (11:53)
[2022-09-04] MEDS ORDERED: fentaNYL (PF) 50 MCG/ML 2 ML AMP IVP ONE (11:53)
[2022-09-04] MEDS ORDERED: LIDOCAINE 1% INJ 10MG/ML (5 ML VIAL-PF) SQ ONE (11:54)
[2022-09-04] MEDS ORDERED: VERAPAMIL SYRINGE (5 MG/10 ML) INTRAARTER ONE (11:55)
[2022-09-04] MEDS ORDERED: HEPARIN SODIUM 1,000 UN/ML (10ML VL) IVP ONE (11:58)
[2022-09-04] MEDS ORDERED: IOPAMIDOL-370 125ML BTL INJ ONE (12:05)
[2022-09-04 15:11] VITALS: BP 104/67; PULSE 68
--- NOTE | 2022-09-04 18:13 | P.CARDCATH ---
Description of Procedure: PROCEDURES PERFORMED: Left heart catheterization, bilateral coronary angiography INDICATION: Abnormal stress test CONSENT:I have discussed the risks, benefits and alternative therapies for the above-mentioned procedure and for both sedation/analgesia as well as necessary blood product administration, if indicated, as they pertain to this patient. The patient has indicated understanding and acceptance of the risks and procedures discussed. PROCEDURE: After the risks, benefits and alternatives of the above mentioned procedure explained in detail with the patient, informed consent was obtained. Patient was taken to the catheterization lab and prepped and draped in usual fashion. 1% lidocaine was used to anesthetize the right radial artery. A 6- Scottish sheath was placed in the right radial artery using modified Seldinger technique. Left coronary angiography was performed with a 5-Scottish JL 3.5 catheter and right coronary angiography was performed with a 5-Scottish JR5 catheter in various views. A 5-Scottish FR5 catheter was inserted into the left ventricle and pressure measurements were obtained. The right radial sheath was removed and a TR band was placed with hemostasis achieved. The patient tolerated the procedure well. Patient was transported back to the post catheterization holding area in stable condition. Conscious Sedation: Patient was monitored under the direct supervision of vision of myself for conscious sedation using Versed and fentanyl for a total duration of 12 minutes HEMODYNAMICS: Aorta: 122/72 LV: 131/4, LVDP 15 SELECTIVE CORONARY ARTERIOGRAPHY: LEFT MAIN: The left main is a large caliber vessel which bifurcates into the LAD and circumflex. There is no significant stenosis. LEFT ANTERIOR DESCENDING CORONARY ARTERY: LAD is a large caliber vessel which wraps around to the apex. There is no significant stenosis. LEFT CIRCUMFLEX CORONARY ARTERY: Left circumflex is a moderate caliber vessel without significant stenosis. RIGHT CORONARY ARTERY: The right coronary artery is a large caliber vessel which gives off a PDA and PLV branch and is the dominant vessel. There is no sign ificant stenosis. FINAL IMPRESSION: 1. Normal coronary arteries as described above. 2. Normal left sided filling pressures PLAN: 1. Aggressive risk factor modification per most recent ACC/AHA guidelines. 2. Follow-up in the office in 1-2 weeks.
== END 2022-09-04 15:50 | disposition home or self-care (01) ==
LOC: CATHCVL 10:28
PROVIDERS: ATTEND Internal Medicine
DX: R94.39 Abnormal result of other cardiovascular function study (principal); E78.5 Hyperlipidemia, unspecified; E11.9 Type 2 diabetes mellitus without complications; J45.909 Unspecified asthma, uncomplicated; E66.01 Morbid (severe) obesity due to excess calories; Z68.41 Body mass index [BMI] 40.0-44.9, adult; Z79.84 Long term (current) use of oral hypoglycemic drugs; Z79.899 Other long term (current) drug therapy
CPT/HCPCS: 93458; 99152; C1769; C1894; J2250; J2001; J3010; J1644; Q9967

== ENCOUNTER → 2023-01-08 | Outpatient (CLI) | payer BC ==
[2023-01-08 11:46] LABS: African American GFR (CKD) >90 (>60 ml/min/1.73 sqM); Blood Urea Nitrogen 19 mg/dL (7-17); Non-African American GFR(CKD) 82 (>60 ml/min/1.73 sqM)
--- NOTE | 2023-01-08 15:25 | CT ---
EXAMINATION TYPE: CT abdomen pelvis wo/w con DATE OF EXAM: 01/08/2023 COMPARISON: 05/19/2016 HISTORY: 52-year-old female E11.69, Issues with pancreas, attention pancreas per order, Hx isa, laina y, tubal ligation. Prior in PACS TECHNIQUE: Contiguous axial scanning of the abdomen before and after administration of 1 25 mL Isovue -370 IV contrast. Arterial phase imaging is performed. Subsequent portal venous phase imaging through the abdomen and pelvis. Coronal/sagittal reconstructions performed. CT DLP: 2930.40 mGycm Automated exposure control for dose reduction was used. FINDINGS: The heart is normal size without pericardial effusion. Lung bases are clear without pleural effusion. Suggestion of possible small lower esophageal varices. There is hepatomegaly at 23.3 cm versus 22.5 cm, previously. Diffuse diminished attenuation compatibl e with fatty infiltration. No focal liver lesion is seen. Portal venous system is patent. No biliary ductal dilatation. Cholecystectomy clips. Unchanged nodularity of the left adrenal gland measuring up to 1.6 cm. No nephrolithiasis or hydronep hrosis. There is splenomegaly at 15.5 cm measured on coronal series versus 13.6 cm, previously. Small 2.2 cm diverticulum projecting superiorly from the thoracic portion of the duodenum. Pancreas within normal limits. No abnormal associated fluid collection, surrounding edema, or other d iscrete abnormal areas seen. No dilated small bowel, free fluid, or free air. No mesenteric or retroperitoneal lymphadenopathy. Surgical material right lower quadrant probably relates to prior appendectomy. Sigmoid diverticulosis . No pericolonic inflammatory change. Pelvic floor relaxation. Bladder nondistended. Uterus is anteverted but retroflexed. Both ovaries are visualized. No abnormal fluid collection in the pelvis or pelvic lymphadenopathy. Bones: Facet arthropathy mid to lower lumbar spine. IMPRESSION: 1. NO SPECIFIC ABNORMALITY IDENTIFIED OF THE PANCREAS. 2. HEPATOSPLENOMEGALY (LIVER 23.3 CM AND SPLEEN 15.5 CM). CONCURRENT HEPATIC STEATOSIS. 3. POSSIBLE SMALL LOWER ESOPHAGEAL VARICES. QUERY POTENTIAL UNDERLYING CHRONIC LIVER DISEASE. 4. SIGMOID DIVERTICULOSIS WITHOUT ACUTE DIVERTICULITIS. MILD PELVIC FLOOR RELAXATION.
== END | disposition home or self-care (01) ==
LOC: RADCTMAIN 11:02
PROVIDERS: ATTEND Family Medicine
DX: E11.69 Type 2 diabetes mellitus with other specified complication (principal); K57.30 Diverticulosis of large intestine without perforation or abscess without bleeding; K76.0 Fatty (change of) liver, not elsewhere classified; J01.40 Acute pansinusitis, unspecified; Z90.49 Acquired absence of other specified parts of digestive tract; Z98.51 Tubal ligation status
CPT/HCPCS: 82565; 84520; 74178; 36415; Q9967

== ENCOUNTER → 2023-06-18 | Outpatient (CLI) | payer BC ==
[2023-06-18 14:28] LABS: Basophils # (A) 0.07 X 10*3/uL (0.00-0.10); Basophils % (A) 0.9 %; Eosinophils # (A) 0.07 X 10*3/uL (0.04-0.35); Eosinophils % (A) 0.9 %; HCT 43.6 % (37.2-46.3); HGB 14.7 g/dL (12.0-15.0); Lymphocytes # (A) 1.92 X 10*3/uL (0.90-5.00); Lymphocytes % (A) 25.9 %; MCH 28.7 pg (27.0-32.0); MCHC 33.7 g/dL (32.0-37.0); MCV 85.2 FL (80.0-97.0); Mean Platelet Volume 11.2 FL (9.5-12.2); Monocytes # (A) 0.58 X 10*3/uL (0.20-1.00); Monocytes % (A) 7.8 %; NRBC Per 100 WBC 0 X 10*3/uL (0.00-0.01); Neutrophils # (A) 4.69 X 10*3/uL (1.80-7.70); Neutrophils % (A) 63.4 %; Platelet Count 221 X 10*3/uL (140-440); RBC 5.12 X 10*6/uL (4.10-5.20); RDW 13.3 % (11.5-14.5); WBC 7.41 X 10*3/uL (4.50-10.00)
[2023-06-18 14:46] LABS: ALT 61 U/L (8-44); AST 47 U/L (13-35); Albumin/Globulin Ratio 1.21 Ratio (1.60-3.17); Alkaline Phosphatase 133 U/L (41-126); BUN/Creat Ratio 15.12 Ratio (12.00-20.00); Blood Urea Nitrogen 12.1 mg/dL (9.0-27.0); Calcium 9.9 mg/dL (8.7-10.3); Carbon Dioxide 22.4 mmol/L (21.6-31.8); Chloride 97 mmol/L (96-109); Globulin 3.3 g/dL (1.6-3.3); Glucose 473 mg/dL (70-110); Potassium 4.5 mmol/L (3.5-5.5); Sodium 133 mmol/L (135-145); Total Bilirubin 1.3 mg/dL (0.3-1.2); Total Protein 7.3 g/dL (6.2-8.2)
== END | disposition home or self-care (01) ==
LOC: LABWHC1 08:22
PROVIDERS: ATTEND Family Medicine
DX: U09.9 Post COVID-19 condition, unspecified (principal)
CPT/HCPCS: 36415; 80053; 85025

== ENCOUNTER → 2023-06-28 | Outpatient (CLI) | payer BC ==
[2023-06-28 15:01] LABS: ALT 36 U/L (8-44); AST 34 U/L (13-35); Albumin/Globulin Ratio 1.29 Ratio (1.60-3.17); Alkaline Phosphatase 117 U/L (41-126); BUN/Creat Ratio 16.12 Ratio (12.00-20.00); Blood Urea Nitrogen 12.9 mg/dL (9.0-27.0); Calcium 9.6 mg/dL (8.7-10.3); Carbon Dioxide 25.7 mmol/L (21.6-31.8); Chloride 100 mmol/L (96-109); Globulin 3.1 g/dL (1.6-3.3); Glucose 267 mg/dL (70-110); Potassium 4.4 mmol/L (3.5-5.5); Sodium 138 mmol/L (135-145); Total Bilirubin 1.1 mg/dL (0.3-1.2); Total Protein 7.1 g/dL (6.2-8.2)
== END | disposition home or self-care (01) ==
LOC: LABWHC1 07:47
PROVIDERS: ATTEND Family Medicine
DX: U09.9 Post COVID-19 condition, unspecified (principal)
CPT/HCPCS: 36415; 80053

== ENCOUNTER → 2023-07-12 | Outpatient (CLI) | payer BC ==
[2023-07-12 12:53] LABS: African American GFR (CKD) >90 (>60 ml/min/1.73 sqM); Blood Urea Nitrogen 16 mg/dL (7-17); Non-African American GFR(CKD) >90 (>60 ml/min/1.73 sqM)
--- NOTE | 2023-07-12 13:44 | CT ---
Maxillary: EXAMINATION TYPE: CT brain wo/w con DATE OF EXAM: 07/12/2023 COMPARISON: none HISTORY: Post covid condition, dizziness, weakness in legs, memory issues CT DLP: 2370.10mGycm CONTRAST: CT scan of the head is performed with IV Contrast, patient injected with 100 mL of Isovue 300. Unenhanced followed by contrast enhanced CT of the brain is submitted for evaluation. The ventricles are midline. There is no evidence for intracranial hemorrhage or extra-axial collection. No mass e ffects are identified. Visualized bony calvarium is intact. Contrast is administered and no enhanci ng lesions are detected. No pathologic enhancement is identified. If symptoms persist consider MRI. IMPRESSION: Normal CT brain.
--- NOTE | 2023-07-12 14:15 | XR ---
EXAMINATION TYPE: XR chest 2V DATE OF EXAM: 07/12/2023 COMPARISON: 1217 TECHNIQUE: PA and lateral views submitted. HISTORY: Shortness of breath FINDINGS: The lungs are clear and there is no pneumothorax, pleural effusion, or focal pneumonia. Heart size normal and no overt failure. Osseous structures demonstrate hypertrophic and degenerative changes of the spine. Postsurgical change involving the abdomen. IMPRESSION: 1. No acute process.
--- NOTE | 2023-07-13 07:11 | CA ---
Transthoracic Echo Report Name: Umm Blancas Age: 53 Gender: F : 1970 Exam Date: 07/12/2023 12:57 Exam Location: [facility] Ht (in): 64 Wt (lb): 245 Ordering Physician: Jagdish Duran DO Attending/Referring Phys: Jagdish Duran DO Tso Mary Rosado RDCS Procedure CPT: Indications: U09.9 POST COVID CONDITION Cardiac Hx: Technical Quality: Good Contrast 1: Total Dose (mL): Contrast 2: Total Dose (mL): MEASUREMENTS (Male / Female) Normal Values 2D ECHO LV Diastolic Diameter PLAX 5.3 cm 4.2 - 5.9 / 3.9 - 5.3 cm LV Systolic Diameter PLAX 4.0 cm IVS Diastolic Thickness 1.1 cm 0.6 - 1.0 / 0.6 - 0.9 cm LVPW Diastolic Thickness 0.8 cm 0.6 - 1.0 / 0.6 - 0.9 cm LV Relative Wall Thickness 0.4 Aortic Root Diameter 2.7 cm LA Systolic Diameter LX 3.9 cm 3.0 - 4.0 / 2.7 - 3.8 cm DOPPLER AV Peak Velocity 182.1 cm/s AV Peak Gradient 13.3 mmHg AV Mean Velocity 147.8 cm/s AV Mean Gradient 9.3 mmHg AV Velocity Time Integral 36.8 cm LVOT Peak Velocity 58.9 cm/s LVOT Peak Gradient 1.4 mmHg Mitral E Point Velocity 84.2 cm/s Mitral A Point Velocity 74.5 cm/s Mitral E to A Ratio 1.1 MV Deceleration Time 179.1 ms MV E' Velocity 19.6 cm/s Mitral E to MV E' Ratio 4.3 PV Peak Velocity 97.5 cm/s PV Peak Gradient 3.8 mmHg FINDINGS Left Ventricle Left ventricular ejection fraction is estimated at 55-60 %.normal left ventricular wall motion. Left ventricular cavity size normal. Right Ventricle Normal right ventricular size and function. Right Atrium Normal right atrial size. Left Atrium Mildly increased left atrial diameter. Mitral Valve Structurally normal mitral valve. Trace mitral regurgitation. Aortic Valve Trileaflet aortic valve.no aortic valve stenosis or regurgitation. Tricuspid Valve Trace to mild tricuspid regurgitation.structurally normal tricuspid valve. Pulmonic Valve Pulmonic valve not well visualized. Pericardium No pericardial effusion. Aorta Normal size aortic root and proximal ascending aorta. CONCLUSIONS 1. Normal left ventricle size and systolic function 2. Trace mitral with trace to mild tricuspid regurgitation Previewed by: Dr. Vincent Evans MD (Electronically Signed) Final Date: 13 July 2023 07:11
== END | disposition home or self-care (01) ==
LOC: RADCTMAIN 12:16
PROVIDERS: ATTEND Family Medicine
DX: R42 Dizziness and giddiness (principal); R53.1 Weakness; U09.9 Post COVID-19 condition, unspecified
CPT/HCPCS: 93306; 82565; 84520; 71046; 70470; 36415; Q9967

== ENCOUNTER 2024-09-11 20:19 | Emergency (ER) | payer OTHER ==
[2024-09-11 20:32] LABS: Glucose,Whole Blood 157 mg/dL (70-110)
--- NOTE | 2024-09-11 20:35 | ED ---
Recheck HPI - General Chief Complaint: Recheck/Abnormal Lab/Rx Stated Complaint: overdose-insulin Time Seen by Provider: 09/11/24 20:34 Source: patient, RN notes reviewed, old records reviewed Mode of arrival: ambulatory Limitations: no limitations - History of Present Illness Initial Comments: This is a 54-year-old female to the ER for evaluation patient [facility] for evaluation regards to low blood sugar significant insulin dependent diabetes at this time patient has no complaints able to eat and drink MD Complaint: abnormal lab (low BS) -: days(s) Returns Today for: Called Because of Abnormal Lab/Test Symptoms Since Prior Visit: no new symptoms Context: planned re-check, called for abnormal lab result Associated Symptoms: none Treatments Prior to Arrival: other (0) - Related Data Home Medications Medication Instructions Recorded Confirmed metFORMIN HCL [Glucophage] 500 mg PO BID 08/25/17 09/04/22 Loratadine [Claritin] 10 mg PO HS 05/23/18 09/04/22 Sertraline [Zoloft] 25 mg PO HS 02/07/19 09/04/22 Metoprolol Succinate [Metoprolol 25 mg PO HS 09/01/22 09/04/22 Succinate ER] Allergies Allergy/AdvReac Type Severity Reaction Status Date / Time No Known Allergies Allergy Verified 09/11/24 20:26 Review of Systems ROS Statement: Those systems with pertinent positive or pertinent negative responses have been documented in the HPI. ROS Other: All systems not noted in ROS Statement are negative. Past Medical History Past Medical History: Cancer, Diabetes Mellitus, GERD/Reflux, Pneumonia Additional Past Medical History / Comment(s): arthritis, scoliosis,recently dx w/dm-2, murmur,bronchitis. "enlarged liver,elevated liver enz-has u/s of liver no results back yet", basal cell skin ca eye lid History of Any Multi-Drug Resistant Organisms: None Reported Past Surgical History: Ablation, Appendectomy, Cholecystectomy, Tubal Ligation Additional Past Surgical History / Comment(s): basal cell skin ca removed lt eye lid, espohagal ablation Past Anesthesia/Blood Transfusion Reactions: No Reported Reaction Additional Past Anesthesia/Blood Transfusion Reaction / Comment(s): no blood tx, ran high fever 106 post op after uterine ablation Past Psychological History: No Psychological Hx Reported Smoking Status: Never smoker Past Alcohol Use History: None Reported Past Drug Use History: None Reported - Past Family History Mother Family Medical History: Cancer Additional Family Medical History / Comment(s): lung cancer - age 47 Father Additional Family Medical History / Comment(s): age 70 from [facility] General Exam Limitations: no limitations General appearance: alert, in no apparent distress Head exam: Present: atraumatic, normocephalic, normal inspection Eye exam: Present: normal appearance, PERRL, EOMI. Absent: scleral icterus, conjunctival injection, periorbital swelling ENT exam: Present: normal exam, mucous membranes moist Neck exam: Present: normal inspection. Absent: tenderness, meningismus, lymphadenopathy Respiratory exam: Present: normal lung sounds bilaterally. Absent: respiratory distress, wheezes, rales, rhonchi, stridor Cardiovascular Exam: Present: regular rate, normal rhythm, normal heart sounds. Absent: systolic murmur, diastolic murmur, rubs, gallop, clicks GI/Abdominal exam: Present: soft, normal bowel sounds. Absent: distended, tenderness, guarding, rebound, rigid Extremities exam: Present: normal inspection, full ROM, normal capillary refill. Absent: tenderness, pedal edema, joint swelling, calf tenderness Back exam: Present: normal inspection Neurological exam: Present: alert, oriented X3, CN II-XII intact Psychiatric exam: Present: normal affect, normal mood Skin exam: Present: warm, dry, intact, normal color. Absent: rash Course Vital Signs 09/11/24 20:20 Temperature 98.3 F Pulse Rate 94 Respiratory 16 Rate Blood Pressure 164/88 O2 Sat by Pulse 97 Oximetry - Reevaluation(s) Reevaluation #1: 09/11/24 21:39 Medical record is reviewed Reevaluation #2: 09/11/24 21:39 Patient is able to eat and drink here in the ER no recurrent bouts of low blood sugar Reevaluation #3: 09/11/24 21:40 Patient informed of results questions answered Reevaluation #4: Was pt. sent in by a medical professional or institution (, PA, TUBE COREMAKER, urgent care, hospital, or group home...) When possible be specific @ -no Did you speak to anyone other than the patient for history (EMS, parent, family, police, friend...)? What history was obtained from this source @ -no Did you review nursing and triage notes (agree or disagree)? Why? @ -agree Are old charts reviewed (outside hosp., previous admission, EMS record, old EKG, old radiological studies, urgent care reports/EKG's, group home records)? Report findings @ -yes Differential Diagnosis (chest pain, altered mental status, abdominal pain women, abdominal pain men, vaginal bleeding, weakness, fever, dyspnea, syncope, headache, dizziness, GI bleed, back pain, seizure, CVA, palpatations, mental health, musculoskeletal)? @ -prior EKG interpreted by me (3pts min.). @ -yes X-rays interpreted by me (1pt min.). @ -yes negative for acute disease CT interpreted by me (1pt min.). @ -no U/S interpreted by me (1pt. min.). @ -no What testing was considered but not performed or refused? (CT, X-rays, U/S, labs)? Why? @ -none What meds were considered but not given or refused? Why? @ -none Did you discuss the management of the patient with other professionals (professionals i.e. , PA, TUBE COREMAKER, lab, RT, psych nurse, high school social studies tutor, venetian blind washer, teacher, child support case officer, caseworker)? Give summary @ -no Was smoking cessation discussed for >3mins.? @ -no Was critical care preformed (if so, how long)? @ -no Were there social determinants of health that impacted care today? How? (Homelessness, low income, unemployed, alcoholism, drug addiction, transportation, low edu. Level, literacy, decrease access to med. care, long term, rehab)? @ -none Was there de-escalation of care discussed even if they declined (Discuss DNR or withdrawal of care, Hospice)? DNR status @ -no What co-morbidities impacted this encounter? (DM, HTN, Smoking, COPD, CAD, Cancer, CVA, ARF, Chemo, Hep., AIDS, mental health diagnosis, sleep apnea, morbid obesity)? @ -none Was patient admitted / discharged? Hospital course, mention meds given and route, prescriptions, significant lab abnormalities, going to OR and other pertinent info. @ - Undiagnosed new problem with uncertain prognosis? @ -no Drug Therapy requiring intensive monitoring for toxicity (Heparin, Nitro, Insu madison, Cardizem)? @ -no Were any procedures done? @ -no Diagnosis/symptom? @ - Acute, or Chronic, or Acute on Chronic? @ -Acute Uncomplicated (without systemic symptoms) or Complicated (systemic symptoms)? @ -Complicated Side effects of treatment? @ -no Exacerbation, Progression, or Severe Exacerbation? @ -exacerbation Poses a threat to life or bodily function? How? (Chest pain, USA, PA, pneumonia, PE, COPD, DKA, ARF, appy, cholecystitis, CVA, Diverticulitis, Homicidal, Suicidal, threat to staff... and all critical care pts) @ -yes Medical Decision Making - Medical Decision Making 54 female diabetic hyperglycemia. Patient is able to eat and drink blood sugar initially dropped but is maintaining here in the ER patient can be discharged home - Lab Data Lab Results 09/11/24 Range/Units 20:28 POC Glucose (mg/dL) 157 H (70-110) mg/dL POC Glu Psychologist Private Practice ID [facility] Disposition Clinical Impression: Diabetic hypoglycemia Disposition: HOME SELF-CARE Condition: Good Instructions (If sedation given, give patient instructions): Hypoglycemia in a Person with Diabetes (ED) Is patient prescribed a controlled substance at d/c from ED?: No Referrals: Johnny Hanson MD [Primary Care Provider] - 1-2 days Time of Disposition: 21:30
[2024-09-11 21:43] VITALS: BP 155/68; PULSE 86; RESP 18; TEMP 98.7
== END 2024-09-11 21:44 | disposition home or self-care (01) ==
LOC: EC 20:19
DX: E11.649 Type 2 diabetes mellitus with hypoglycemia without coma (principal); Z79.4 Long term (current) use of insulin
CPT/HCPCS: 36415; 99284

== ENCOUNTER → 2024-10-17 | Outpatient (CLI) | payer OTHER ==
--- NOTE | 2024-10-17 15:22 | MM ---
Reason for Exam: Screening (asymptomatic). Last mammogram was performed 3 year(s) and 3 month(s) ago. Patient History: Menarche at age 10. First Full-Term at age 25. Postmenopausal. Patient has history of breast feeding. Other cancer, age 43. 06/27/2014, Benign Cyst Aspiration on the left side. 06/27/2014, Benign Core Biopsy on the right side. Risk Values: Ava 5 year model risk: 1.7%. NCI Lifetime model risk: 11.6%. Prior Study Comparison: 01/16/2019 Bilateral Screening Mammogram, [facility]. 03/07/2020 Bilateral Screening Mammogram, [facility]. 07/25/2021 Bilateral Screening Mammogram, [facility]. Tissue Density: The breasts are extremely dense, which lowers the sensitivity of mammography. Findings: Analyzed By CAD. There are small circumscribed round masses bilaterally redemonstrated and are stable or smaller in size from older mammograms on background fibroglandular tissue. Bilateral biopsy clips are redemonstrated. There is no suspicious new group of microcalcifications or new suspicious mass in either breast. Overall Assessment: Benign, BI-RAD 2 Management: Screening Mammogram of both breasts in 1 year. Some advise annual bilateral breast ultrasound surveillance in patients with background dense tissue. Patient should continue monthly self-breast exams. A clinical breast exam by your physician is recommended on an annual basis. This exam should not preclude additional follow-up of suspicious palpable abnormalities. Note on Ava scores and lifetime risk: 1. A Ava score greater than 3% is considered moderate risk. If this is the case, consider specialist referral to assess eligibility for a risk reducing agent. 2. If overall lifetime risk for the development of breast cancer is 20% or higher, the patient may qualify for future screening with alternating mammogram and breast MRI. [facility], , 10/17/2024 3:20 PM. Electronically signed and approved by: Daquan Rousseau M.D.
== END | disposition home or self-care (01) ==
LOC: RADMAMWWP 14:21
PROVIDERS: ATTEND Family Medicine
DX: Z12.31 Encounter for screening mammogram for malignant neoplasm of breast (principal); R92.343 Mammographic extreme density, bilateral breasts; Z78.0 Asymptomatic menopausal state
CPT/HCPCS: 77063; 77067